=== PATIENT | female | born 1970 | race Caucasian/White ===

== ENCOUNTER 2016-10-02 01:13 | Emergency (ER) | payer MEDICAID ==
--- NOTE | 2016-10-02 01:36 | Emergency Department Record ---
History of Present Illness - General Chief Complaint: Abdominal Pain Stated Complaint: ABDOMINAL PAIN Time Seen by Provider: 10/02/16 01:32 Source: Patient Mode of Arrival: Ambulatory Limitations: No limitations - History of Present Illness Initial Comments: 46 yo female presents with abdominal pain. She first developed general pain early Friday morning. She has had some associated nausea. Over the course of the day she developed pain on right side only. She has pain with moving. No diarrhea. Normal bowel movements. She had a fever at home of 101. No rash. She has had her gallbladder removed in 1994. No history of gastrointestinal disease. No history of colonoscopy. MD Complaint: Abdominal pain Onset/Timin -: Hour(s) Location: RLQ Radiation: RLQ Migration to: RLQ Quality: Dull, Sharp Consistency: Constant Improves With: Rest Worsens With: Movement Associated Symptoms: Nausea, Vomiting - Related Data Home Medications Medication Instructions Recorded Confirmed Last Taken Estradiol [Estrace] 1 mg PO DAILY 10/02/16 10/02/16 10/01/16 Levothyroxine Sodium [Synthroid] 50 mcg PO DAILY 10/02/16 10/02/16 10/01/16 Zolpidem Tartrate [Ambien] 5 mg PO QHS PRN 10/02/16 10/02/16 Unknown Allergies Allergy/AdvReac Type Severity Reaction Status Date / Time No Known Drug Allergies Allergy Verified 10/02/16 01:18 Travel Screening - Travel/Exposure Within Last 30 Days Have you traveled within the last 30 days?: No - Travel Symptoms Symptom Screening: None Review of Systems Constitutional: Reports: Fever. Denies: Chills Eyes: Denies: Eye discharge, Eye pain, Photophobia ENT: Denies: Congestion, Throat pain Respiratory: Denies: Cough, Dyspnea, Hemoptysis, Stridor, Wheezes Cardiovascular: Denies: Chest pain, Palpitations, Syncope Endocrine: Denies: Fatigue, Polydipsia, Polyuria Gastrointestinal: Reports: As per HPI, Abdominal pain. Denies: Diarrhea Genitourinary: Denies: Dysuria, Hematuria, Retention, Urgency Musculoskeletal: Denies: Arthralgia, Back pain, Myalgia, Neck pain Skin: Denies: Bruising, Change in color, Rash Neurological: Denies: Confusion, Headache, Weakness Psychiatric: Denies: Anxiety Hematological/Lymphatic: Denies: Blood Clots, Easy bleeding, Easy bruising, Swollen glands Past Medical History - SOCIAL HISTORY Smoking Status: Never smoker - RESPIRATORY Hx Respiratory Disorders: Yes Comment:: insomnia - CARDIOVASCULAR Hx Cardio Disorders: No - NEURO Hx Neuro Disorders: No - GI Hx GI Disorders: No - Hx Genitourinary Disorders: No - ENDOCRINE Hx Endocrine Disorders: Yes Hx Thyroid Disease: Yes (low) - MUSCULOSKELETAL Hx Musculoskeletal Disorders: No - PSYCH Hx Psych Problems: No - HEMATOLOGY/ONCOLOGY Hx Hematology/Oncology Disorders: No Family Medical History Any Significant Family History?: Yes Hx Diabetes: Grandparents Hx Heart Disease: Grandparents Physical Exam - General General Appearance: Alert, Oriented x3, Cooperative, No acute distress Limitations: No limitations - Head Head exam: Normal inspection - Eye Eye exam: Normal appearance, PERRL. negative: Conjunctival injection, Scleral icterus - ENT ENT exam: Normal exam, Mucous membranes moist Ear exam: Normal external inspection Nasal Exam: Normal inspection Mouth exam: Normal external inspection Teeth exam: Normal inspection Throat exam: Normal inspection - Neck Neck exam: Normal inspection, Full ROM. negative: Tenderness - Respiratory Respiratory exam: Normal lung sounds bilaterally. negative: Respiratory distress - Cardiovascular Cardiovascular Exam: Regular rate, Normal rhythm, Normal heart sounds - GI/Abdominal GI/Abdominal exam: Soft, Tenderness (tender in the RLQ on palpation, left side is very soft and non tender, RUQ is soft and non tender). negative: Distended, Hernia - Rectal Rectal exam: Deferred - exam: Deferred - Extremities Extremities exam: Normal inspection, Full ROM, Normal capillary refill. negative: Tenderness - Back Back exam: Reports: Normal inspection, Full ROM. Denies: Muscle spasm, Rash noted, Tenderness - Neurological Neurological exam: Alert, Normal gait, Oriented X3 - Psychiatric Psychiatric exam: Normal affect, Normal mood. negative: Agitated, Anxious - Skin Skin exam: Dry, Intact, Normal color, Warm Course Vital Signs 10/02/16 01:20 Temperature 99.5 F Pulse Rate 108 H Respiratory 20 Rate Blood Pressure 188/91 Pulse Ox 95 - Reevaluation(s) Reevaluation #1: The CBC and CMP were reviewed WBC is 10 Minor changes of the LFT's The CT scan demonstrated streaking of the ascending colon and cecum suggesting inflammatory or infectious process. No abscess or perforation. Normal appendix per body of the report. The results were discussed with the patient. i recommend admission for further work up and possible GI or Surgery consult Her PCP is at [facility] [place]. 10/02/16 03:02 Reevaluation #2: I SW Dr Bernal He accepts the transfer to [facility] [place] Awaiting bed placement. 10/02/16 03:42 Medical Decision Making - Lab Data Result diagrams: 10/02/16 01:36 10/02/16 01:36 Disposition Disposition: Transfer Clinical Impression: Colitis Abdominal pain Qualifiers: Abdominal location: unspecified location Qualified Code(s): R10.9 - Unspecified abdominal pain Transfer To: [facility] [place] Reason For Transfer: Colitis, Abdominal Pain Accepting Physician: Dolores Time Discussed w/Accepting Physician: 03:43 Condition: (2) Stable Forms: Patient Portal Access Time of Disposition: 03:07
[2016-10-02] MEDS: 0.9 % SODIUM CHLORIDE 1,000 ML BAG IV ONE (01:40)
[2016-10-02 01:45] LABS: BASO % 0.1 % (0-6); EOS % 0.3 % (0-6); GRAN % 75.5 % (47-80); HEMATOCRIT 42.1 % (35.0-47.0); HEMOGLOBIN 14.3 gm/dl (11.6-16.0); LYMPH % 16.3 % (16-45); MEAN CELL VOLUME 90.1 fl (81-97); MEAN CORPUSCULAR HEMOGLOBIN 30.6 pg (27-33); MEAN PLATELET VOLUME 8.4 fl (7.4-10.4); MONO % 7.8 % (0-9); PLATELET COUNT 206 K/uL (130-400); RED BLOOD COUNT 4.67 M/uL (3.80-5.40); RED CELL DISTRIBUTION WIDTH 12.3 % (11.5-14.5); WHITE BLOOD COUNT W/O DIFF 10.4 K/uL (4.2-12.2)
[2016-10-02 01:46] LABS: URINE APPEARANCE CLEAR; URINE BILIRUBIN NEGATIVE (NEGATIVE); URINE BLOOD SMALL (NEGATIVE); URINE COLOR YELLOW; URINE GLUCOSE (UA) NEGATIVE (NEGATIVE); URINE KETONE TRACE (NEGATIVE); URINE LEUKOCYTE ESTERASE NEGATIVE (NEGATIVE); URINE NITRITE NEGATIVE (NEGATIVE); URINE PROTEIN NEGATIVE (NEGATIVE)
[2016-10-02 01:47] LABS: URINE BACTERIA NONE SEEN; URINE EPITHELIAL CELLS 0 - 2 (FEW); URINE WBC 0 - 2 (0-2/hpf)
[2016-10-02 01:56] LABS: ALB/GLOB RATIO 1.5 (1.1-1.8); ALBUMIN 4.5 gm/dL (3.5-5.0); ALKALINE PHOSPHATASE 74 U/L (38-126); ALT/SGPT 65 U/L (9-52); ANION GAP 9.2 (7-16); AST/SGOT 43 U/L (14-36); BILIRUBIN,TOTAL 0.96 mg/dL (0.2-1.3); BLOOD UREA NITROGEN 10 mg/dL (7-17); CARBON DIOXIDE 28.8 mmol/L (22-30); CREATININE 0.7 mg/dL (0.52-1.04); EST GLOMERULAR FILTRATION RATE > 60 ml/min; GLUCOSE,RANDOM 114 mg/dL (70-110); LIPASE 43 U/L (23-300); TOTAL PROTEIN 7.5 gm/dL (6.3-8.2)
[2016-10-02] MEDS: ONDANSETRON 4 MG ODT TABLET SL ONE (01:56)
[2016-10-02] MEDS: ONDANSETRON HCL IV 4 MG/2 ML VIAL IVP ONE (01:56)
== END 2016-10-02 04:13 | disposition short-term general hospital (02) ==
LOC: ER 01:13
DX: K52.9 Noninfective gastroenteritis and colitis, unspecified (principal); R11.2 Nausea with vomiting, unspecified; R10.31 Right lower quadrant pain
CPT/HCPCS: 74177; 80053; 81001; 83690; 85025; 96361; 96374; 99284; J2405; J7030